=== PATIENT | male | born 1960 | race Hispanic/Latino ===

== ENCOUNTER 2017-09-12 08:31 | Emergency (ER) | payer OTHER ==
[~2017-09-12] VITALS: Ht 177.8 cm; Wt 104.3 kg
[2017-09-12 08:48] VITALS: BP 165/110
[2017-09-12] MEDS ORDERED: TORADOL IM ONE (09:00)
[2017-09-12] MEDS ORDERED: ZESTRIL PO SCH (09:00)
[2017-09-12] MEDS ORDERED: ZESTRIL ONE (09:01)
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
[2017-09-12] MEDS ORDERED: TORADOL ONE (09:02)
--- NOTE | 2017-09-12 09:38 | DIREP ---
PROCEDURE:XRAY KNEE 2 VWS-RT COMPARISON:None. INDICATIONS:injury FINDINGS: BONES:Normal. JOINTS:Mild tricompartmental joint space narrowing. SOFT TISSUES:Medial soft tissue swelling. OTHER:No additional findings. CONCLUSION: Medial soft tissue swelling. No acute bony findings. Dictated by: Patrick Sarmiento MD on 09/12/2017 at 09:36 AM
[2017-09-12 10:31] VITALS: BP 163/100
== END 2017-09-12 10:18 | disposition home or self-care (01) ==
LOC: ER 08:31
DX: S83.91XA Sprain of unspecified site of right knee, initial encounter (principal); K21.9 Gastro-esophageal reflux disease without esophagitis; I10 Essential (primary) hypertension; F17.200 Nicotine dependence, unspecified, uncomplicated; W18.39XA Other fall on same level, initial encounter; Y93.89 Activity, other specified; Y92.488 Other paved roadways as the place of occurrence of the external cause; Y99.8 Other external cause status
CPT/HCPCS: 73560; 96372; 99284; J1885